=== PATIENT | female | born 1990 | race Caucasian/White ===

== ENCOUNTER 2020-09-04 13:00 | Outpatient (RCR) | payer BC, SELFPAY | END 2020-09-26 17:15 | disposition home or self-care (01) | LOC: PT.CARL 13:00 | PROVIDERS: Visit Provider Physician Assistant | DX: M54.5 Low back pain; M54.6 Pain in thoracic spine | CPT/HCPCS: 97010; 97014; 97110; 97140; 97163; G0283 ==